=== PATIENT | male | born 1930 | race Caucasian/White ===

== ENCOUNTER 2022-01-30 14:37 | Inpatient (IN) ==
[2022-01-30] MEDS ORDERED: Naloxone 0.4 MG/ML INJ IVP PRN (17:10)
[2022-01-30] MEDS ORDERED: *HR* Heparin 5,000 UNIT/ML VIAL IVP PRN ×2 (17:15)
[2022-01-30] MEDS ORDERED: *HR* Heparin 5,000 UNIT/ML VIAL IVP ONE (17:15)
[2022-01-30] MEDS ORDERED: Heparin 25,000UNIT/250ML 1/2NS 25,000 UNIT/250 ML IV.SOLN IVC SCH (17:15)
[2022-01-30] MEDS ORDERED: 0.9 % Sodium Chloride 1,000 ML IV ONE (17:54)
[2022-01-30] MEDS ORDERED: *HR* Metoprolol 5 MG/5 ML VIAL IVP PRN (18:24)
[2022-01-30] MEDS ORDERED: Ondansetron 4 MG/2 ML VIAL IVP PRN (18:27)
[2022-01-30] MEDS ORDERED: Mag Hydrox/Al Hydrox/Simeth 30 ML UDC PO PRN (18:29)
[2022-01-30 19:07] LABS: INR 2.3
[2022-01-30 19:14] LABS: Adenovirus Not Detected (Not Detect); Bordetella Pertussis Not Detected (Not Detect); Chlamydophila pneumoniae Not Detected (Not Detect); Coronavirus 229E Not Detected (Not Detect); Coronavirus HKU1 Not Detected (Not Detect); Coronavirus NL63 Not Detected (Not Detect); Coronavirus OC43 Not Detected (Not Detect); Human Metapneumovirus Not Detected (Not Detect); Human Rhinovirus/Enterovirus Not Detected (Not Detect); Influenza A Subtype 2009 H1 Not Detected (Not Detect); Influenza B Not Detected (Not Detect); Mycoplasma pneumoniae Not Detected (Not Detect); Parainfluenza Virus 1 Not Detected (Not Detect); Parainfluenza Virus 2 Not Detected (Not Detect); Parainfluenza Virus 3 Not Detected (Not Detect); Parainfluenza Virus 4 Not Detected (Not Detect); Respiratory Syncytial Virus Not Detected (Not Detect); SARS-CoV-2 Not Detected (Not Detect)
[2022-01-30 19:16] LABS: Heparin anti-factor XA UFH 1.43 IU/mL (0.30-0.70)
[2022-01-30 19:21] LABS: Troponin I 0.08 ng/mL (< 0.04)
[2022-01-30 19:48] LABS: Albumin 3.9 g/dL (3.5-5.7); Potassium 5.8 mEq/L (3.5-5.1)
[2022-01-30 19:58] LABS: Albumin/Globulin Ratio 1.6 (1.1-2.2); Globulin 2.5 g/dL (2.4-3.5); Magnesium 2.5 mg/dL (1.6-2.6); Total Protein 6.4 g/dL (6.4-8.9)
[2022-01-30 20:00] LABS: Bilirubin,Direct 0.8 mg/dL (0.0-0.2); Bilirubin,Indirect 1.2 mg/dL (0.0-1.0)
[2022-01-30] MEDS: 0.9 % Sodium Chloride 500 ML IVC ONE ×2 (20:34→21:04)
[2022-01-30] MEDS: Sodium Bicarbonate 150 MEQ in D5% in Water 1,000 ML IVC SCH (22:07)
[2022-01-30 22:48] LABS: Albumin 3.7 g/dL (3.5-5.7); Albumin/Globulin Ratio 1.6 (1.1-2.2); Bilirubin,Direct 0.8 mg/dL (0.0-0.2); Bilirubin,Indirect 1.1 mg/dL (0.0-1.0); Bilirubin,Total 1.9 mg/dL (0.3-1.0); Globulin 2.3 g/dL (2.4-3.5)
[2022-01-31] MEDS: Piperacillin/Tazobactam 3.375 GM in 0.9 % Sodium Chloride Mini Bag 100 ML IVPB SCH ×3 (00:42→19:56)
[2022-01-31 01:56] LABS: VBG HCO3 11 mEq/L (21-27); VBG PCO2 24 mmHg (41-51); VBG PH 7.27 pH Units (7.32-7.42); VBG PO2 62 mmHg (25-50)
[2022-01-31 01:58] LABS: Basophils % 0.1 %; Hematocrit 33.6 % (37.5-50.1); Hemoglobin 10.2 g/dL (12.9-16.9); Immature Granulocytes % 0.7 % (0-4); Lymphocytes % 5.7 %; Mean Corpuscular HGB Conc 30.4 g/dL (31.6-35.5); Mean Corpuscular Hemoglobin 26.7 pg (28.0-33.3); Mean Platelet Volume 11.4 fL (9.4-12.4); Monocytes # 1.9 K/mcL (0.0-1.3); Monocytes % 11.3 %; Neutrophils # 14.1 K/mcL (1.6-8.9); Nucleated Red Blood Cells 0.1 /100 WBC (0); Platelet Count 136 K/mcL (140-400); Red Blood Count 3.82 M/mcL (4.19-5.50); Red Cell Distribution Width 20.9 % (11.5-14.5); Segmented Neutrophils % 82.2 %; White Blood Count 17.1 K/mcL (4.3-11.1)
[2022-01-31 02:05] LABS: Heparin anti-factor XA UFH 0.61 IU/mL (0.30-0.70)
[2022-01-31 02:06] LABS: INR 2.5; Prothrombin Time 27.6 Seconds (9.4-12.1)
[2022-01-31 02:11] LABS: Hepatitis C Virus Antibody Nonreactive (Nonreactive)
[2022-01-31 02:14] LABS: Hepatitis A Antibody IgM Nonreactive (Nonreactive)
[2022-01-31 02:17] LABS: Estimated Average Glucose 146 mg/dl; Hemoglobin A1C 6.7 %
[2022-01-31 02:30] LABS: Albumin 3.8 g/dL (3.5-5.7); Albumin/Globulin Ratio 1.7 (1.1-2.2); Bilirubin,Direct 0.9 mg/dL (0.0-0.2); Bilirubin,Total 1.9 mg/dL (0.3-1.0); Calcium 8.4 mg/dL (8.6-10.3); Globulin 2.2 g/dL (2.4-3.5); Magnesium 2.3 mg/dL (1.6-2.6); Phosphorous 7.6 mg/dL (2.7-4.5); Potassium 5.8 mEq/L (3.5-5.1)
[2022-01-31] MEDS: Lactulose Oral Soln 20 GM/30 ML UDC PO SCH ×5 (02:36→19:56)
[2022-01-31] MEDS ORDERED: 0.9 % Sodium Chloride 500 ML IVC ONE (04:27)
[2022-01-31 04:30] LABS: Hepatitis B Surface Antigen Nonreactive (Nonreactive)
[2022-01-31] MEDS: Finasteride 5 MG TABLET PO SCH (07:38)
[2022-01-31] MEDS: Aspirin 81 MG TAB.CHEW PO SCH (07:51)
[2022-01-31] MEDS ORDERED: Calcium Gluconate 1gm/50mL 1 GM/50 ML BAG IVPB PRN (07:53)
[2022-01-31] MEDS ORDERED: *HR* Dextrose 50 % in Water (Syg) 50 ML SYRINGE IVP ONE (07:55)
[2022-01-31] MEDS ORDERED: Insulin Human Regular 10 UNIT in 0.9 % Sodium Chloride 10 ML IV ONE (07:55)
[2022-01-31] MEDS ORDERED: Acetylcysteine IV 10,900 MG in D5% in Water 250 ML IVC ONE (08:00)
[2022-01-31] MEDS: Calcium Gluconate 1gm/50mL 1 GM/50 ML BAG IVPB SCH ×2 (08:43→09:29)
[2022-01-31] MEDS: Sodium Bicarbonate 150 MEQ in D5% in Water 1,000 ML IVC SCH (09:00)
[2022-01-31] MEDS ORDERED: Acetylcysteine IV 3,600 MG in D5% in Water 500 ML IVC ONE (09:13)
[2022-01-31 09:58] LABS: Potassium 5.1 mEq/L (3.5-5.1); Troponin I 0.14 ng/mL (< 0.04)
[2022-01-31 10:45] LABS: Alanine Aminotransferase 2853 Units/L (7-52); Albumin 3.6 g/dL (3.5-5.7); Albumin/Globulin Ratio 1.6 (1.1-2.2); Alkaline Phosphatase 74 Units/L (34-104); Aspartate Amino Transferase > 3000 Units/L (13-39); Bilirubin,Direct 0.7 mg/dL (0.0-0.2); Bilirubin,Indirect 0.9 mg/dL (0.0-1.0); Bilirubin,Total 1.6 mg/dL (0.3-1.0); Globulin 2.2 g/dL (2.4-3.5); Total Protein 5.8 g/dL (6.4-8.9)
[2022-01-31 13:19] LABS: Hematocrit 30.2 % (37.5-50.1); Hemoglobin 9.4 g/dL (12.9-16.9)
[2022-01-31] MEDS ORDERED: Acetylcysteine IV 7,300 MG in D5% in Water 1,000 ML IVC ONE (13:22)
[2022-01-31] MEDS ORDERED: 0.9 % Sodium Chloride 500 ML ONE (15:26)
[2022-01-31] MEDS: DOBUTamine 1,000 MG/250 ML BAG IVC SCH (15:52)
[2022-01-31 15:58] LABS: Basophils % 0.2 %; Eosinophils % 0.2 %; Hematocrit 30.8 % (37.5-50.1); Hemoglobin 9.4 g/dL (12.9-16.9); Immature Granulocytes % 0.7 % (0-4); Lymphocytes # 0.9 K/mcL (0.6-4.6); Lymphocytes % 8.2 %; Mean Corpuscular HGB Conc 30.5 g/dL (31.6-35.5); Mean Corpuscular Hemoglobin 26.5 pg (28.0-33.3); Mean Corpuscular Volume 86.8 fL (83.0-100.0); Mean Platelet Volume 11.4 fL (9.4-12.4); Monocytes # 0.9 K/mcL (0.0-1.3); Monocytes % 7.9 %; Neutrophils # 9.2 K/mcL (1.6-8.9); Nucleated Red Blood Cells 0.3 /100 WBC (0); Platelet Count 112 K/mcL (140-400); Red Blood Count 3.55 M/mcL (4.19-5.50); Red Cell Distribution Width 20.4 % (11.5-14.5); Segmented Neutrophils % 82.8 %; White Blood Count 11.2 K/mcL (4.3-11.1)
[2022-01-31 15:59] LABS: VBG HCO3 17 mEq/L (21-27); VBG PCO2 27 mmHg (41-51); VBG PO2 110 mmHg (25-50)
[2022-01-31 16:35] LABS: Alanine Aminotransferase 3001 Units/L (7-52); Albumin 3.4 g/dL (3.5-5.7); Albumin/Globulin Ratio 1.8 (1.1-2.2); Alkaline Phosphatase 75 Units/L (34-104); Aspartate Amino Transferase > 3000 Units/L (13-39); BUN/Creatinine Ratio 24 (6-26); Bilirubin,Direct 0.6 mg/dL (0.0-0.2); Bilirubin,Indirect 0.8 mg/dL (0.0-1.0); Bilirubin,Total 1.4 mg/dL (0.3-1.0); Blood Urea Nitrogen 49 mg/dL (8-23); Calcium 7.9 mg/dL (8.6-10.3); Carbon Dioxide 17 mEq/L (23-29); Chloride 105 mEq/L (98-107); Globulin 1.9 g/dL (2.4-3.5); Glucose 225 mg/dL (70-105); Osmolality,Calculated 304 (280-300); Sodium 137 mEq/L (136-145); Total Protein 5.3 g/dL (6.4-8.9)
[2022-01-31] MEDS: Furosemide 40 MG/4 ML VIAL IVP SCH (17:23)
[2022-01-31 17:32] LABS: Bacteria,Urine Few per hpf (None-Few); Bilirubin,Urine Negative (Negative); Blood,Urine Moderate (Negative); Budding Yeast,Urine Few per hpf (None Seen); Clarity,Urine Turbid (Clear); Color,Urine Yellow (Yellow); Glucose,Urine (UA) >=1000 mg/dL (Normal); Hyaline Casts,Urine Few per lpf (None Seen); Ketones,Urine 20 mg/dL (Negative); Leukocyte Esterase,Urine Large (Negative); Mucus,Urine Few per lpf (None-Few); Nitrite,Urine Negative (Negative); Protein,Urine 70 mg/dL (Neg-Trace); RBC,Urine 30-50 per hpf (0-3); Renal Epithelial Cells,Urine Few per hpf (None-Few); Specific Gravity,Urine 1.019 (1.010-1.025); Transitional Epi Cells,Urine Few per hpf (None-Few); Urobilinogen,Urine Normal (Normal); WBC,Urine TNTC per hpf (0-3)
[2022-01-31 22:40] LABS: Albumin 3.4 g/dL (3.5-5.7); Albumin/Globulin Ratio 1.7 (1.1-2.2); Bilirubin,Direct 0.6 mg/dL (0.0-0.2); Bilirubin,Indirect 0.9 mg/dL (0.0-1.0); Bilirubin,Total 1.5 mg/dL (0.3-1.0); Total Protein 5.4 g/dL (6.4-8.9)
[2022-02-01 03:18] LABS: Albumin 3.2 g/dL (3.5-5.7); Albumin/Globulin Ratio 1.6 (1.1-2.2); Bilirubin,Direct 0.6 mg/dL (0.0-0.2); Bilirubin,Indirect 0.9 mg/dL (0.0-1.0); Bilirubin,Total 1.5 mg/dL (0.3-1.0); Total Protein 5.2 g/dL (6.4-8.9)
[2022-02-01 05:51] LABS: Basophils % 0.1 %; Eosinophils # 0.2 K/mcL (0.0-0.6); Hematocrit 29.9 % (37.5-50.1); Hemoglobin 9.2 g/dL (12.9-16.9); Immature Granulocytes % 0.6 % (0-4); Lymphocytes # 0.8 K/mcL (0.6-4.6); Lymphocytes % 9.7 %; Mean Corpuscular HGB Conc 30.8 g/dL (31.6-35.5); Mean Corpuscular Hemoglobin 26.7 pg (28.0-33.3); Mean Corpuscular Volume 86.7 fL (83.0-100.0); Mean Platelet Volume 11.2 fL (9.4-12.4); Monocytes # 0.7 K/mcL (0.0-1.3); Monocytes % 7.6 %; Neutrophils # 6.9 K/mcL (1.6-8.9); Platelet Count 106 K/mcL (140-400); Red Blood Count 3.45 M/mcL (4.19-5.50); Red Cell Distribution Width 20.4 % (11.5-14.5); White Blood Count 8.7 K/mcL (4.3-11.1)
[2022-02-01 06:18] LABS: Albumin 3.2 g/dL (3.5-5.7); Albumin/Globulin Ratio 1.9 (1.1-2.2); Bilirubin,Direct 0.6 mg/dL (0.0-0.2); Bilirubin,Total 1.6 mg/dL (0.3-1.0); Calcium 7.6 mg/dL (8.6-10.3); Globulin 1.7 g/dL (2.4-3.5); Total Protein 4.9 g/dL (6.4-8.9); Troponin I 0.16 ng/mL (< 0.04)
[2022-02-01] MEDS ORDERED: Potassium Chloride Elixir 20 MEQ/15 ML UDC PO ONE ×2 (06:22→12:00)
[2022-02-01] MEDS: Piperacillin/Tazobactam 3.375 GM in 0.9 % Sodium Chloride Mini Bag 100 ML IVPB SCH ×2 (08:31→20:51)
[2022-02-01] MEDS: Lactulose Oral Soln 20 GM/30 ML UDC PO SCH ×4 (08:32→21:05)
[2022-02-01] MEDS: Furosemide 40 MG/4 ML VIAL IVP SCH (08:32)
[2022-02-01] MEDS: Finasteride 5 MG TABLET PO SCH (08:32)
[2022-02-01] MEDS: Aspirin 81 MG TAB.CHEW PO SCH (08:32)
[2022-02-01] MEDS: *HR* Digoxin 0.5 MG/2 ML AMPUL IVP SCH ×2 (13:35→17:43)
[2022-02-01] MEDS: Furosemide 20 MG/2 ML VIAL IVP SCH (20:52)
[2022-02-01] MEDS: Mirtazapine 15 MG TABLET PO SCH (20:52)
[2022-02-02] MEDS: *HR* Digoxin 0.5 MG/2 ML AMPUL IVP SCH ×2 (00:06→05:24)
[2022-02-02] MEDS: Melatonin 3 MG TABLET PO SCH ×2 (01:14→20:44)
[2022-02-02 04:24] LABS: Basophils % 0.3 %; Eosinophils # 0.5 K/mcL (0.0-0.6); Hematocrit 31.4 % (37.5-50.1); Hemoglobin 9.7 g/dL (12.9-16.9); Immature Granulocytes % 0.3 % (0-4); Lymphocytes # 1.1 K/mcL (0.6-4.6); Lymphocytes % 13.8 %; Mean Corpuscular HGB Conc 30.9 g/dL (31.6-35.5); Mean Corpuscular Hemoglobin 26.6 pg (28.0-33.3); Mean Platelet Volume 11.5 fL (9.4-12.4); Monocytes # 0.7 K/mcL (0.0-1.3); Monocytes % 8.7 %; Neutrophils # 5.5 K/mcL (1.6-8.9); Platelet Count 104 K/mcL (140-400); Red Blood Count 3.65 M/mcL (4.19-5.50); Red Cell Distribution Width 20.4 % (11.5-14.5); Segmented Neutrophils % 70.9 %; White Blood Count 7.8 K/mcL (4.3-11.1)
[2022-02-02 05:00] LABS: Albumin/Globulin Ratio 1.8 (1.1-2.2); Bilirubin,Direct 0.6 mg/dL (0.0-0.2); Bilirubin,Indirect 1.1 mg/dL (0.0-1.0); Bilirubin,Total 1.7 mg/dL (0.3-1.0); Calcium 7.6 mg/dL (8.6-10.3); Globulin 1.7 g/dL (2.4-3.5); Magnesium 1.9 mg/dL (1.6-2.6); Potassium 3.6 mEq/L (3.5-5.1); Total Protein 4.7 g/dL (6.4-8.9)
[2022-02-02] MEDS ORDERED: *HR* Digoxin 0.25 MG TABLET PO ONE (09:00)
[2022-02-02] MEDS: Aspirin 81 MG TAB.CHEW PO SCH (09:08)
[2022-02-02] MEDS: Finasteride 5 MG TABLET PO SCH (09:08)
[2022-02-02] MEDS: Furosemide 20 MG/2 ML VIAL IVP SCH (09:09)
[2022-02-02] MEDS: DOBUTamine 1,000 MG/250 ML BAG IVC SCH (10:27)
[2022-02-02 12:33] LABS: Digoxin 1.8 ng/mL (0.8-2.0)
[2022-02-02 12:39] LABS: INR 2.3; Prothrombin Time 25.5 Seconds (9.4-12.1)
[2022-02-02] MEDS ORDERED: 0.9 % Sodium Chloride 500 ML IVC ONE (14:38)
[2022-02-02] MEDS: Mirtazapine 15 MG TABLET PO SCH (20:44)
[2022-02-03 04:16] LABS: Basophils % 0.4 %; Eosinophils # 0.6 K/mcL (0.0-0.6); Eosinophils % 7.8 %; Hematocrit 33.5 % (37.5-50.1); Hemoglobin 10.5 g/dL (12.9-16.9); Immature Granulocytes % 0.5 % (0-4); Lymphocytes # 1.4 K/mcL (0.6-4.6); Lymphocytes % 17.1 %; Mean Corpuscular HGB Conc 31.3 g/dL (31.6-35.5); Mean Corpuscular Hemoglobin 26.9 pg (28.0-33.3); Mean Corpuscular Volume 85.7 fL (83.0-100.0); Mean Platelet Volume 10.7 fL (9.4-12.4); Monocytes % 11.8 %; Platelet Count 100 K/mcL (140-400); Red Blood Count 3.91 M/mcL (4.19-5.50); Red Cell Distribution Width 19.9 % (11.5-14.5); Segmented Neutrophils % 62.4 %; White Blood Count 8.1 K/mcL (4.3-11.1)
[2022-02-03 04:24] LABS: INR 1.7; Prothrombin Time 18.8 Seconds (9.4-12.1)
[2022-02-03 06:40] LABS: Albumin 2.8 g/dL (3.5-5.7); Albumin/Globulin Ratio 1.5 (1.1-2.2); Bilirubin,Direct 0.6 mg/dL (0.0-0.2); Bilirubin,Indirect 1.3 mg/dL (0.0-1.0); Bilirubin,Total 1.9 mg/dL (0.3-1.0); Calcium 7.3 mg/dL (8.6-10.3); Digoxin 1.8 ng/mL (0.8-2.0); Globulin 1.9 g/dL (2.4-3.5); Magnesium 1.9 mg/dL (1.6-2.6); Phosphorous 1.8 mg/dL (2.7-4.5); Potassium 3.9 mEq/L (3.5-5.1); Total Protein 4.7 g/dL (6.4-8.9)
[2022-02-03] MEDS: Finasteride 5 MG TABLET PO SCH (08:01)
[2022-02-03] MEDS: Aspirin 81 MG TAB.CHEW PO SCH (08:01)
[2022-02-03] MEDS ORDERED: Furosemide 20 MG/2 ML VIAL IVP SCH (09:00)
[2022-02-03] MEDS ORDERED: Lactulose Oral Soln 20 GM/30 ML UDC PO SCH (09:00)
[2022-02-03] MEDS ORDERED: *HR* Digoxin 0.25 MG TABLET PO ONE (09:00)
[2022-02-03] MEDS: DOBUTamine 1,000 MG/250 ML BAG IVC SCH ×2 (10:02→16:14)
[2022-02-03] MEDS ORDERED: Heparin 25,000UNIT/250ML 1/2NS 25,000 UNIT/250 ML IV.SOLN IVC SCH (11:15)
[2022-02-03] MEDS ORDERED: *HR* Heparin 5,000 UNIT/ML VIAL IVP PRN ×2 (11:15)
[2022-02-03] MEDS: Furosemide 20 MG TABLET PO SCH (13:35)
[2022-02-03] MEDS ORDERED: Lactulose Oral Soln 20 GM/30 ML UDC PO ONE (16:39)
[2022-02-03] MEDS: Apixaban 5 MG TABLET PO SCH (20:19)
[2022-02-03] MEDS: Lactulose Oral Soln 20 GM/30 ML UDC PO SCH (20:19)
[2022-02-03] MEDS: Melatonin 3 MG TABLET PO SCH (20:19)
[2022-02-03] MEDS: Mirtazapine 15 MG TABLET PO SCH (20:19)
[2022-02-04 06:24] LABS: Basophils % 0.4 %; Eosinophils # 0.6 K/mcL (0.0-0.6); Eosinophils % 7.2 %; Hematocrit 33.5 % (37.5-50.1); Hemoglobin 10.3 g/dL (12.9-16.9); Immature Granulocytes % 0.4 % (0-4); Lymphocytes # 1.8 K/mcL (0.6-4.6); Lymphocytes % 22.6 %; Mean Corpuscular HGB Conc 30.7 g/dL (31.6-35.5); Mean Corpuscular Hemoglobin 26.3 pg (28.0-33.3); Mean Corpuscular Volume 85.7 fL (83.0-100.0); Mean Platelet Volume 10.1 fL (9.4-12.4); Monocytes % 12.3 %; Neutrophils # 4.5 K/mcL (1.6-8.9); Platelet Count 107 K/mcL (140-400); Red Blood Count 3.91 M/mcL (4.19-5.50); Red Cell Distribution Width 19.7 % (11.5-14.5); Segmented Neutrophils % 57.1 %; White Blood Count 7.9 K/mcL (4.3-11.1)
[2022-02-04 07:45] LABS: Albumin/Globulin Ratio 1.8 (1.1-2.2); Bilirubin,Direct 0.5 mg/dL (0.0-0.2); Bilirubin,Indirect 1.1 mg/dL (0.0-1.0); Bilirubin,Total 1.6 mg/dL (0.3-1.0); Calcium 7.8 mg/dL (8.6-10.3); Digoxin 1.6 ng/mL (0.8-2.0); Globulin 1.7 g/dL (2.4-3.5); Magnesium 1.9 mg/dL (1.6-2.6); Potassium 3.9 mEq/L (3.5-5.1); Total Protein 4.7 g/dL (6.4-8.9)
[2022-02-04] MEDS: Lactulose Oral Soln 20 GM/30 ML UDC PO SCH (08:12)
[2022-02-04] MEDS: Furosemide 20 MG TABLET PO SCH (08:13)
[2022-02-04] MEDS: Finasteride 5 MG TABLET PO SCH (08:13)
[2022-02-04] MEDS: Aspirin 81 MG TAB.CHEW PO SCH (08:14)
[2022-02-04] MEDS: Apixaban 5 MG TABLET PO SCH (08:14)
[2022-02-04] MEDS ORDERED: *HR* Digoxin 0.125 MG TABLET PO SCH (09:00)
[2022-02-04] MEDS ORDERED: *HR* Digoxin 0.25 MG TABLET PO SCH (09:00)
[2022-02-04] MEDS ORDERED: Metoprolol XL (24 HR) Succ 25 MG TAB.ER.24H PO SCH (10:00)
[2022-02-04 15:30] VITALS: BP 102/46; PULSE 88; TEMP 98.8; O2SAT 97
[2022-02-05] MEDS ORDERED: *HR* Digoxin 0.125 MG TABLET PO SCH (09:00)
== END 2022-02-04 17:15 | disposition home health service (06) | DRG 871 ==
LOC: 2NNU → SUATTDRO 16:53
PROVIDERS: ADMIT Pharmacist; ATTEND Pharmacist